=== PATIENT | male | born 1985 | race Caucasian/White ===

== ENCOUNTER 2020-09-05 09:05 | Emergency (ER) | payer OTHER ==
--- NOTE | 2020-09-05 09:27 | EDM.PDOC ---
ED HPI GENERAL MEDICAL PROBLEM - General Chief Complaint: Cardiovascular Problem Stated Complaint: CHEST PAIN Time Seen by Provider: 09/05/20 09:26 Source of Information: Reports: Patient - History of Present Illness INITIAL COMMENTS - FREE TEXT/NARRATIVE: Master, 34-year-old male, presents with complaint of not feeling himself today, questionable anxiety/panic with mild chest discomfort. States some adjustments in his medications were made this past week increasing his metoprolol from 25 mg to 50 mg. States this morning he got up 5 AM have breakfast as he is in town for work, went to work at which time he just did not feel quite right. He then started questioning if it was an anxiety attack and noticed that he was having notable chest pressure, midsternal region. 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 Denies any recent illness or exposures. Denies any physical activity that would have caused musculature issues that he can remember and demonstrate. Underwent thorough cardiac investigation including stress test last fall. All findings were benign other than treatment of his hypertension and he is on CPAP for sleep apnea. Onset: Today Onset Date: 09/05/20 Onset Time: 07:00 Duration: Minutes:, Constant, Improving Location: Reports: Chest Quality: Reports: Pressure Severity: Moderate Improves with: Reports: None Worsens with: Reports: None Context: Reports: Activity Associated Symptoms: Reports: No Other Symptoms chest Pain Score (Numeric/FACES): 2 - Related Data Allergies Allergy/AdvReac Type Severity Reaction Status Date / Time amoxicillin Allergy Itching Verified 09/05/20 09:23 Penicillins Allergy Rash Verified 09/05/20 09:23 Home Meds: Home Meds Escitalopram Oxalate [Lexapro] 20 mg PO DAILY 09/05/20 [History] Lisinopril/Hydrochlorothiazide [Lisinopril-Hctz 20-12.5 mg Tab] 1 each PO DAILY 09/05/20 [History] Metoprolol Succinate [Toprol XL 50mg] 50 mg PO DAILY 09/05/20 [History] Past Medical History HEENT History: Reports: None Cardiovascular History: Reports: Hypertension Respiratory History: Reports: None, Sleep Apnea (Faithful use of CPAP) Gastrointestinal History: Reports: None Genitourinary History: Reports: None Musculoskeletal History: Reports: Fracture Neurological History: Reports: None Psychiatric History: Reports: Anxiety Endocrine/Metabolic History: Reports: Obesity/BMI 30+ Hematologic History: Reports: None Immunologic History: Reports: None Oncologic (Cancer) History: Reports: None Dermatologic History: Reports: None - Past Surgical History HEENT Surgical History: Reports: Tonsillectomy, Other (See Below) ([place] teeth) Cardiovascular Surgical History: Reports: None Respiratory Surgical History: Reports: None GI Surgical History: Reports: None Male Surgical History: Reports: None Endocrine Surgical History: Reports: None Neurological Surgical History: Reports: Discectomy, Lumbar Spine Musculoskeletal Surgical History: Reports: Arthroscopic Knee Other Musculoskeletal Surgeries/Procedures:: 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 Oncologic Surgical History: Reports: None Dermatological Surgical History: Reports: None - Past Imaging History Past Imaging History: Reports: Event Monitor, Holter Monitor, Stress Testing, Xray Social & Family History - Family History Cardiac: Reports: Afib, Hypertension Respiratory: Reports: None GI: Reports: None : Reports: None - Tobacco Use Tobacco Use Status *Q: Former Tobacco User Tobacco Use Within Last Twelve Months: No, Cigarettes Used Tobacco, but Quit: Yes Smoking Cessation Information Provided To Patient: No Second Hand Smoke Exposure: No Second Hand Smoke Education Provided: No - Caffeine Use Caffeine Use: Reports: Coffee, Soda - Alcohol Use Alcohol Use History: Yes Alcohol Use Frequency: Socially - Living Situation & Occupation Living situation: Reports: , with Spouse, with Family Occupation: Employed ED ROS GENERAL - Review of Systems Review Of Systems: See Below Constitutional: Reports: No Symptoms HEENT: Reports: No Symptoms Respiratory: Reports: No Symptoms Cardiovascular: Reports: Chest Pain, Blood Pressure Problem Endocrine: Reports: No Symptoms GI/Abdominal: Reports: No Symptoms : Reports: No Symptoms Musculoskeletal: Reports: Other (elbow pain) Skin: Reports: No Symptoms Neurological: Reports: No Symptoms Psychiatric: Reports: Anxiety Hematologic/Lymphatic: Reports: No Symptoms Immunologic: Reports: No Symptoms ED EXAM, GENERAL - Physical Exam Exam: See Below Free Text/Narrative:: Alert, oriented, no acute distress, visiting freely. HEENT is negative to discharge or deformity pink moist mucous membranes with no erythema. PERRLA no icterus no injection. Short systolic neck with no lymphadenopathy no JVD, no rigidity. Thorax is mildly diminished likely secondary of body habitus with no wheezes, no crackles, no accessory muscles being used. I cannot palpate and cause any discomfort. Cardiac is distant S1-S2 I do not appreciate murmur. Abdomen is rotund bowel sounds are present I do not appreciate any megaly. rectal deferred. +1 edema to the lower extremities with no erythema. #1 Interpretation EKG Date: 09/05/20 (934) Time: 09:35 Rhythm: NSR Rate (Beats/Min): 85 [place]: Normal P-Wave: Present QRS: Normal ST-T: Normal QT: Normal Comparison: NA - No Prior EKG Course - Vital Signs Last Recorded V/S: Last Vital Signs Temp 97.1 F 09/05/20 11:59 Pulse 75 09/05/20 11:59 Resp 16 09/05/20 11:59 BP 134/82 09/05/20 11:59 Pulse Ox 96 09/05/20 11:59 - Orders/Labs/Meds Orders: Active Orders 24 hr Category Date Time Status EKG Documentation Completion [RC] ASDIRECTED Care 09/05/20 09:27 Active Nitroglycerin [Nitrostat] Med 09/05/20 09:33 Active 0.4 mg SL Q5M PRN EKG 12 Lead [EK] Stat Ther 09/05/20 09:27 Ordered Medication Orders Nitroglycerin (Nitrostat) 0.4 mg SL Q5M PRN PRN Reason: Chest Pain Last Admin: 09/05/20 09:39 Dose: 0.4 mg Documented by: YUDITH Labs: Laboratory Tests 09/05/20 09/05/20 09/05/20 Range/Units 09:20 09:20 09:20 WBC 8.00 (5.00-10.00) 10^3/uL RBC 5.11 (4.50-6.00) 10^6/uL Hgb 15.6 (13.0-17.0) g/dL Hct 45.5 (40.0-52.0) % MCV 89.0 (82.0-92.0) fL MCH 30.5 (27.0-31.0) pg MCHC 34.3 (32.0-36.0) g/dL RDW 12.0 (11.5-14.5) % Plt Count 274 (150-400) 10^3/uL MPV 9.3 (7.4-10.4) fL Immature Gran % (Auto) 0.6 (0.0-5.0) % Neut % (Auto) 58.9 (50.0-70.0) % Lymph % (Auto) 28.5 (20.0-40.0) % [place] % (Auto) 8.9 H (2.0-8.0) % Eos % (Auto) 2.8 (1.0-3.0) % Baso % (Auto) 0.3 (0.0-1.0) % Neut # (Auto) 4.72 (2.50-7.00) 10^3/uL Lymph # (Auto) 2.28 (1.00-4.00) 10^3/uL [place] # (Auto) 0.71 (0.10-0.80) 10^3/uL Eos # (Auto) 0.22 (0.10-0.30) 10^3/uL Baso # (Auto) 0.02 (0.00-0.10) 10^3/uL Immature Gran # (Auto) 0.05 (0.00-0.50) 10^3/uL D-Dimer, Quantitative < 100 (<400) ng/mL Sodium 137 (136-145) mmol/L Potassium 3.7 (3.5-5.1) mmol/L Chloride 99 (98-107) mmol/L Carbon Dioxide 26.3 (21.0-32.0) mmol/L Anion Gap 15.4 H (5-15) mmol/L BUN 13 (7-18) mg/dL Creatinine 0.83 (0.51-1.17) mg/dL Est Cr Clr Drug Dosing 119.04 mL/min Estimated GFR (MDRD) > 60 mL/min Glucose 106 (70-140) mg/dL Calcium 9.1 (8.7-10.3) mg/dL Total Bilirubin 0.5 (0.2-1.0) mg/dL AST 46 H (15-37) U/L ALT 94 H (14-63) U/L Alkaline Phosphatase 86 (46-116) U/L CK-MB (CK-2) 1.38 (0.00-3.60) ng/mL Troponin I < 0.017 (0.000-0.056) ng/mL Total Protein 8.1 (6.4-8.2) g/dL Albumin 4.02 (3.40-5.00) g/dL Meds: Medications Generic Name Dose Route Start Last Admin Trade Name Freq PRN Reason Stop Dose Admin Nitroglycerin 0.4 mg 09/05/20 09:33 09/05/20 09:39 Nitrostat SL 0.4 mg Q5M PRN Administration Chest Pain Discontinued Medications Generic Name Dose Route Start Last Admin Trade Name Freq PRN Reason Stop Dose Admin Aspirin 324 mg 09/05/20 09:32 09/05/20 09:38 Aspirin PO 09/05/20 09:33 324 mg ONETIME ONE Administration Aspirin 325 mg 09/05/20 09:33 09/05/20 09:39 Ecotrin PO 09/05/20 09:34 Not Given ONETIME ONE Furosemide 20 mg 09/05/20 10:48 09/05/20 10:54 Lasix IVPUSH 09/05/20 10:49 20 mg NOW ONE Administration Lisinopril 20 mg 09/05/20 10:47 09/05/20 10:54 Prinivil PO 09/05/20 10:48 20 mg ONETIME ONE Administration Metoprolol Tartrate 5 mg 09/05/20 10:16 09/05/20 10:26 Lopressor IVPUSH 09/05/20 10:17 5 mg ONETIME ONE Administration Nitroglycerin 0.4 mg 09/05/20 09:33 09/05/20 09:39 Nitrostat SL 09/05/20 09:34 Not Given ONETIME ONE - Radiology Interpretation Free Text/Narrative:: Cardiomegaly without CHF - Re-Assessments/Exams Free Text/Narrative Re-Assessment/Exam: 09/05/20 11:08 Has been pain-free ever since initial treatment started. States now that if he moves his left shoulder posteriorly he feels a slight twinge in his chest. I am unable to palpate anything or worsen at with palpation of the area. Blood pressure continues to be labile with slight improvement. We do discuss that taking his lisinopril hydrochlorothiazide at bedtime may not be as beneficial overall and that the fact that he can take the medication and sleep through the night makes me question if the hydrochlorothiazide has lost i ts efficacy. He is comfortable awaiting discharge explaining to him that we need to get blood pressure in a little better control. Free Text/Narrative Re-Assessment/Exam: 09/05/20 12:17 Significant improvement in blood pressure readings after the oral lisinopril and IV Lasix. He urinated twice in the first hour and was ready for discharge. No further chest discomfort, other than to position changes of the Right shoulder, which is non-reproduced to palpation. I did discuss with him the option to stay in the hospital for further evaluation which he declined. He will be cognitive of his intake and activity and follow- up this week with his regular provider in [place]. Departure - Departure Time of Disposition: 12:07 Disposition: Home, Self-Care 01 Condition: Good Clinical Impression: Atypical chest pain, Elevated liver enzymes, Hypertension - Discharge Information *PRESCRIPTION DRUG MONITORING PROGRAM REVIEWED*: Not Applicable *COPY OF PRESCRIPTION DRUG MONITORING REPORT IN PATIENT JONATHAN: Not Applicable Instructions: Hypertension, Adult, [id number], Chest Wall Pain Referrals: PCP,Not In Area [Primary Care Provider] - Forms: ED Department Discharge Additional Instructions: You have been given additional doses of your regular blood pressure medicine. Lopressor 5 mg is similar to the metoprolol. 20 mg of oral lisinopril was given the same as what you are currently taking. You were given 20 mg of IV Lasix which is a stronger form of the water medicine (hydrochlorothiazide) that you are currently taken. All lab work we performed today other than, the liver enzymes, was in normal limits. The discomfort that you experience when moving your shoulder is likely a muscle issue, and possibly stress or anxiety contributed to this as well as the fact he did not sleep as well last evening. You need to call your clinic in [place] and get an appointment scheduled for Thursday when you return home for recheck. I would advise you taking your lisinopril hydrochlorothiazide in the morning versus at bedtime. The fact that you are not getting up to urinate at night after taking that medicine makes me question if the hydrochlorothiazide is working as it was intended. Please discuss these issues with your provider when you see them this week. We have provided you with a copy of the chest x-ray for you to bring to that appointment, you will file release of information form with your clinic and they will send us we will be able to send the complete record to them. In the event you have any questions concerns or recurrence of this issue while you are here in [place], please feel free to contact us or return to the emergency department for reevaluation. Sepsis Event Note (ED) - Focused Exam Vital Signs: Vital Signs Temp Pulse Pulse Resp BP BP Pulse Ox 09/05/20 11:59 97.1 F 75 16 134/82 96 09/05/20 11:47 82 141/97 H 09/05/20 11:31 79 146/100 H 09/05/20 11:24 88 144/98 H 09/05/20 11:11 80 151/101 H 09/05/20 11:06 77 147/96 H 09/05/20 11:01 79 147/94 H 09/05/20 10:56 80 153/94 H 09/05/20 10:54 151/96 H 09/05/20 10:46 80 144/100 H 09/05/20 10:41 77 141/101 H 09/05/20 10:36 78 162/92 H 09/05/20 10:31 73 16 147/92 H 95 09/05/20 10:26 80 146/97 H 09/05/20 10:16 80 16 146/97 H 97 09/05/20 09:59 90 16 149/99 H 96 09/05/20 09:43 97 F 100 16 154/85 H 96 09/05/20 09:39 97 F 85 16 166/99 H 166/99 H 98 09/05/20 09:24 96.9 F 93 16 169/105 H 98 - Problem List & Annotations (1) Hypertension SNOMED Code(s): 39133368 Code(s): I10 - ESSENTIAL (PRIMARY) HYPERTENSION Status: Chronic Priority: High Current Visit: Yes Qualifiers: Hypertension type: essential hypertension Qualified Code(s): I10 - Essential (primary) hypertension (2) Elevated liver enzymes SNOMED Code(s): 891916420 Code(s): R74.8 - ABNORMAL LEVELS OF OTHER SERUM ENZYMES Status: Chronic Priority: Medium Current Visit: Yes (3) Atypical chest pain SNOMED Code(s): 092524250 Code(s): R07.89 - OTHER CHEST PAIN Status: Acute Priority: High Current Visit: Yes (4) Cardiomegaly SNOMED Code(s): 5702687 Code(s): I51.7 - CARDIOMEGALY Status: Chronic Priority: Medium Current Visit: Yes - Problem List Review Problem List Initiated/Reviewed/Updated: Yes - My Orders Last 24 Hours: My Active Orders 09/05/20 09:27 EKG Documentation Completion [RC] ASDIRECTED EKG 12 Lead [EK] Stat 09/05/20 09:33 Nitroglycerin [Nitrostat] 0.4 mg SL Q5M PRN - Assessment/Plan Last 24 Hours: My Active Orders 09/05/20 09:27 EKG Documentation Completion [RC] ASDIRECTED EKG 12 Lead [EK] Stat 09/05/20 09:33 Nitroglycerin [Nitrostat] 0.4 mg SL Q5M PRN Plan: )You have been given additional doses of your regular blood pressure medicine. Lopressor 5 mg is similar to the metoprolol. 20 mg of oral lisinopril was given the same as what you are currently taking. You were given 20 mg of IV Lasix which is a stronger form of the water medicine (hydrochlorothiazide) that you are currently taken. All lab work we performed today other than, the liver enzymes, was in normal limits. The discomfort that you experience when moving your shoulder is likely a muscle issue, and possibly stress or anxiety contributed to this as well as the fact he did not sleep as well last evening. You need to call your clinic in [place] and get an appointment scheduled for Thursday when you return home for recheck. I would advise you taking your lisinopril hydrochlorothiazide in the morning versus at bedtime. The fact that you are not getting up to urinate at night after taking that medicine makes me question if the hydrochlorothiazide is working as it was intended. Please discuss these issues with your provider when you see them this week. We have provided you with a copy of the chest x-ray for you to bring to that appointment, you will file release of information form with your clinic and they will send us we will be able to send the complete record to them. In the event you have any questions concerns or recurrence of this issue while you are here in [place], please feel free to contact us or return to the emergency department for reevaluation.
[2020-09-05] MEDS: Aspirin 81 MG Tab.Chew PO ONE (09:38)
[2020-09-05] MEDS: Nitroglycerin 0.4 MG Tab.SL SL ONE (09:39)
[2020-09-05] MEDS: Aspirin 325 MG Tab.EC PO ONE (09:39)
[2020-09-05] MEDS: Nitroglycerin 0.4 MG Tab.SL SL PRN (09:39)
--- NOTE | 2020-09-05 09:56 | CR ---
[id number] RAD/RAD Chest PA or AP 1V EXAM: FRONTAL CHEST INDICATION: CHEST PAIN. COMPARISON: None. DISCUSSION: There is cardiomegaly without evidence of congestive heart failure. Mild hypoinflation with central vascular crowding. No effusions. No infiltrates are identified. IMPRESSION: 1. Cardiomegaly without evidence of congestive heart failure. Alexandru Hearn MD 09/05/20 0954 Thank you for allowing us to participate in the care of your patient.
[2020-09-05 10:03] LABS: ANION GAP 15.4 mmol/L (5-15); CHLORIDE,CL 99 mmol/L (98-107); SODIUM,NA 137 mmol/L (136-145)
[2020-09-05] MEDS: Metoprolol Tartrate 5 MG/5 ML SDV IVPUSH ONE (10:26)
[2020-09-05] MEDS: Furosemide 40 MG/4 ML VIAL IVPUSH ONE (10:54)
[2020-09-05] MEDS: Lisinopril 10 MG Tab PO ONE (10:54)
[2020-09-05] MEDS ORDERED: Sodium Chloride 0.9% 10 ML Syringe FLUSH PRN (12:22)
== END 2020-09-05 12:18 | disposition home or self-care (01) ==
LOC: KA.ED 09:05
DX: R07.89 Other chest pain (principal); I10 Essential (primary) hypertension; R74.8 Abnormal levels of other serum enzymes; M25.529 Pain in unspecified elbow; E66.9 Obesity, unspecified; Z68.43 Body mass index [BMI] 50.0-59.9, adult; Z87.891 Personal history of nicotine dependence; Z88.0 Allergy status to penicillin; Z79.899 Other long term (current) drug therapy
CPT/HCPCS: 36415; 71045; 80053; 82553; 84484; 85025; 85379; 93005; 96374; 96375; 99284; 99285-25; A9270-GY; J1940; J3490